=== PATIENT | male | born 1995 | race African-American/Black ===

== ENCOUNTER 2016-06-07 23:23 | Emergency (ER) | payer MEDICAID ==
[~2016-06-07] VITALS: Ht 172.7 cm; Wt 93.4 kg
[2016-06-07 23:40] VITALS: BP 135/93
--- NOTE | 2016-06-07 23:48 | NUR ---
AMBULATED TO ER OF2
--- NOTE | 2016-06-07 23:49 | NUR ---
Patient being evaluated by physician.
--- NOTE | 2016-06-07 23:49 | NUR ---
COUGH/SORE THROAT, BODY ACHES AND FEVER X 2 WKS. DENIES SOB AT THIS MOMENT. ER MD EVALUATING PATIENT AT THIS MOMENT.
[2016-06-08 00:09] VITALS: BP 129/89
--- NOTE | 2016-06-08 00:09 | NUR ---
Patient discharged BY DR GARCIA with v/s stable. Written and verbal after care instructions given and explained BY ER MD. Patient alert, oriented and verbalized understanding of instructions. Ambulatory with to car. All questions addressed prior to discharge. ID band removed. Patient advised to follow up with PMD. Rx AUGMENTIN AND CODEINE PHOSPHATE/ PROMETHAZINE of given. Patient educated on indication of medication including possible reaction and side effects. Opportunity to ask questions provided and answered.
== END 2016-06-08 00:09 | disposition home or self-care (01) ==
LOC: MED 23:23
DX: J20.9 Acute bronchitis, unspecified (principal); J02.9 Acute pharyngitis, unspecified

== ENCOUNTER 2016-07-31 05:20 | Emergency (ER) | payer MEDICAID ==
[~2016-07-31] VITALS: Ht 175.3 cm; Wt 90.7 kg
[2016-07-31 05:24] VITALS: BP 142/77
--- NOTE | 2016-07-31 05:48 | NUR ---
PT TAKEN TO BED 4
--- NOTE | 2016-07-31 05:49 | NUR ---
21 Y/O HERE W/C/O RASH ALL OVER HIS BODY X 1 MTH. DENIES ANY N/V, SOB, OR FEVER. NO S/S OF DISTRESS NOTED AT THE MOMENT. ER MADE AWARE.
--- NOTE | 2016-07-31 06:10 | NUR ---
PT RESTING IN BED AACOMPANIED BY FAMILY. NO S/S OF DISTRESS NOTED AT THIS MOMENT.
[2016-07-31] MEDS ORDERED: diphenhydrAMINE 50 MG CAP PO ONE (06:15)
[2016-07-31] MEDS ORDERED: predniSONE 20 MG TAB PO ONE (06:15)
[2016-07-31] MEDS ORDERED: predniSONE 20 MG TAB ONE (06:31)
[2016-07-31 06:50] VITALS: BP 128/75
--- NOTE | 2016-07-31 06:50 | NUR ---
Patient discharged with v/s stable. Written and verbal after care instructions given and explained. Patient alert, oriented and verbalized understanding of instructions. Ambulatory with steady gait. All questions addressed prior to discharge. ID band removed. Patient advised to follow up with PMD IN 1-2 DAYS. Rx of PEPCID, AND PREDNISONE given. Patient educated on indication of medication including possible reaction and side effects. Opportunity to ask questions provided and answered.
== END 2016-07-31 06:50 | disposition home or self-care (01) ==
LOC: MED 05:20
DX: L50.0 Allergic urticaria (principal)
CPT/HCPCS: 99283; J7512; Q0163